=== PATIENT | female | born 1945 | race Caucasian/White ===

== ENCOUNTER 2016-08-13 15:21 | Inpatient (IN) | payer OTHER ==
[~2016-08-13] VITALS: Ht 149.9 cm; Wt 61.0 kg
[~2016-08-13 15:21] MED LIST: CALC1TAB4 PO; CIPR500T87 PO; L.AC1CAP6 PO; MECL25TA4 PO; METO10TA82 PO; MULT1TAB60 PO; Mega Red PO; ONDA4TAB10 PO
[2016-08-13] MEDS ORDERED: SODIUM CHLORIDE 0.9% 1,000 ML IV ONE ×2 (15:38→19:00)
[2016-08-13] MEDS ORDERED: LORazepam 2 MG/ML, 1ML ONE (15:44)
[2016-08-13] MEDS ORDERED: SODIUM CHLORIDE 0.9% 1,000ML IVBOLUS ONE (16:00)
[2016-08-13] MEDS ORDERED: SODIUM CHLORIDE FLUSH 10ML SYR IVF ONE (16:00)
[2016-08-13] MEDS ORDERED: LORazepam 2 MG/ML, 1ML IVPush ONE (16:00)
[2016-08-13 16:08] LABS: BLOOD UREA NITROGEN 9 mg/dL (7-18)
[2016-08-13 18:04] LABS: IS PT STATUS REG ER OR PRE ER? YES
[2016-08-13] MEDS ORDERED: SODIUM CHLORIDE FLUSH 10ML SYR IVF PRN (19:00)
[2016-08-13 20:57] VITALS: BP 135/89
[2016-08-14] MEDS: ACETAMINOPHEN 325 MG TABLET PO PRN ×3 (00:51→11:29)
[2016-08-14] MEDS ORDERED: MORPHINE SULFATE 4 MG/ML, 1ML IV PRN (01:00)
[2016-08-14] MEDS ORDERED: ONDANSETRON 2MG/ML, 2ML IV PRN (01:00)
[2016-08-14 03:27] VITALS: BP 110/73
[2016-08-14] MEDS: NS + 20MEQ KCL 1,000 ML IV SCH ×2 (03:46→12:30)
[2016-08-14 05:58] LABS: ASPARTATE AMINO TRANSFERASE 14 U/L (15-37); BLOOD UREA NITROGEN 6 mg/dL (7-18)
[2016-08-14 07:10] VITALS: BP 115/77
[2016-08-14 14:43] VITALS: BP 124/80
== END 2016-08-14 19:02 | disposition home or self-care (01) | DRG 880 ==
LOC: ED 16:25 → EDIP 19:00 → 3NE 20:27
PROVIDERS: ADMIT Internal Medicine; ATTEND Internal Medicine
DX: F41.9 Anxiety disorder, unspecified (principal); F23 Brief psychotic disorder; R44.3 Hallucinations, unspecified; R07.89 Other chest pain; R51 Headache; I10 Essential (primary) hypertension; M54.5 Low back pain; G89.29 Other chronic pain; B37.3 Candidiasis of vulva and vagina; F22 Delusional disorders; Z86.000 Personal history of in-situ neoplasm of breast; Z86.010 Personal history of colon polyps; Z87.442 Personal history of urinary calculi; Z88.8 Allergy status to other drugs, medicaments and biological substances; Z88.1 Allergy status to other antibiotic agents; Z88.5 Allergy status to narcotic agent; Z90.89 Acquired absence of other organs; N20.0 Calculus of kidney; F41.0 Panic disorder [episodic paroxysmal anxiety]; T42.4X5A Adverse effect of benzodiazepines, initial encounter
CPT/HCPCS: 36415; 70450; 74176; 76856; 80048; 80053; 81003; 82040; 84443; 84484; 85025; 87086; 93005; 96361; 96374; J3480; J2060; J7030

== ENCOUNTER → 2017-03-29 | Outpatient (CLI) | payer OTHER | END | disposition home or self-care (01) | LOC: CFH 10:37 | PROVIDERS: ATTEND Surgery | DX: Z12.31 Encounter for screening mammogram for malignant neoplasm of breast (principal); N85.8 Other specified noninflammatory disorders of uterus | CPT/HCPCS: 76830; G0202 ==

== ENCOUNTER → 2017-04-08 | Outpatient (CLI) | payer OTHER | END | disposition home or self-care (01) | LOC: CFH 08:56 | PROVIDERS: ATTEND Obstetrics & Gynecology | DX: N20.0 Calculus of kidney (principal); K57.30 Diverticulosis of large intestine without perforation or abscess without bleeding; N85.8 Other specified noninflammatory disorders of uterus; M47.816 Spondylosis without myelopathy or radiculopathy, lumbar region; M41.86 Other forms of scoliosis, lumbar region; M51.36 Other intervertebral disc degeneration, lumbar region | CPT/HCPCS: 72192 ==

== ENCOUNTER → 2017-05-19 | Outpatient (CLI) | payer OTHER ==
[2017-05-19 13:12] LABS: BASOPHILS # (AUTO) 0.03 x10^3/uL (0-0.1); BASOPHILS % (AUTO) 0 % (0-1); EOSINOPHILS % (AUTO) 1 % (1-7); LYMPHOCYTES # (AUTO) 3.34 x10^3/uL (1-3.4); LYMPHOCYTES % (AUTO) 36 % (22-44); MD NO; MEAN CORPUSCULAR HGB CONC 32.9 g/dL (32.4-35.8); MEAN PLATELET VOLUME 8.1 fL (7.4-10.4); MONOCYTES # (AUTO) 0.66 x10^3/uL (0.2-0.8); MONOCYTES % (AUTO) 7 % (2-9); NEUTROPHILS # (AUTO) 5.22 x10^3/uL (1.8-6.8); NEUTROPHILS % (AUTO) 56 % (42-75); PLATELET COUNT 258 x10^3/uL (130-400); RED BLOOD COUNT 5.47 x10^6/uL (3.82-5.3); RED CELL DISTRIBUTION WIDTH 13.7 % (9.6-15.2)
== END | disposition home or self-care (01) ==
LOC: STAR 12:01
PROVIDERS: ATTEND Obstetrics & Gynecology
DX: Z01.818 Encounter for other preprocedural examination (principal); N85.8 Other specified noninflammatory disorders of uterus
CPT/HCPCS: 36415; 85025; 93005

== ENCOUNTER 2017-05-29 05:39 | Day surgery (SDC) | payer OTHER ==
[~2017-05-29] VITALS: Ht 149.9 cm; Wt 57.3 kg
[2017-05-29 06:00] VITALS: BP 143/87
[2017-05-29] MEDS ORDERED: BUPIVACAINE/PF 0.25% ONE (07:02)
[2017-05-29] MEDS ORDERED: SILVER NITRATE STICK TP ONE (07:02)
[2017-05-29] MEDS ORDERED: EPINEPHRINE 1 MG/ML, 1ML ONE (07:02)
[2017-05-29] MEDS ORDERED: FENTANYL PF 250 MCG/5ML ONE (07:08)
[2017-05-29] MEDS ORDERED: MIDAZOLAM 1 MG/ML, 2ML ONE (07:08)
[2017-05-29] MEDS ORDERED: ROCURONIUM 10MG/ML,5ML ONE (07:42)
[2017-05-29] MEDS ORDERED: PROPOFOL 10 MG/ML, 20ML ONE (07:42)
[2017-05-29] MEDS ORDERED: SUCCINYLCHOLINE 20 MG/ML, 10ML ONE (07:42)
[2017-05-29] MEDS ORDERED: DEXAMETHASONE 4 MG/ML, 1ML ONE (07:42)
[2017-05-29] MEDS ORDERED: HYDROmorphone 1 MG/ML, 1ML IV PRN (08:00)
[2017-05-29] MEDS ORDERED: LABETALOL 5MG/ML, 20ML IV PRN (08:00)
[2017-05-29] MEDS ORDERED: hydrALAzine 20 MG/ML, 1ML IV PRN (08:00)
[2017-05-29] MEDS ORDERED: ONDANSETRON 2MG/ML, 2ML IVPush PRN (08:00)
[2017-05-29] MEDS ORDERED: FENTANYL PF 100 MCG/2ML IV PRN (08:00)
[2017-05-29] MEDS ORDERED: OXYcodone 5 MG/5 ML ORAL.SOL UDC PO PRN (08:00)
[2017-05-29] MEDS ORDERED: METOCLOPRAMIDE 5 MG/ML, 2ML IV PRN (08:00)
[2017-05-29] MEDS ORDERED: ACETAMINOPHEN 325 MG TABLET PO PRN ×2 (08:00→16:30)
[2017-05-29] MEDS ORDERED: ACETAMINOPHEN 650 MG/20.3 ML UDC ONE (09:00)
[2017-05-29] MEDS ORDERED: morphine SULFATE 10 MG/ML, 1ML IV PRN (11:00)
[2017-05-29] MEDS ORDERED: OXYcodone/APAP 5/325MG TABLET PO PRN (11:00)
[2017-05-29] MEDS ORDERED: ONDANSETRON 2MG/ML, 2ML IV PRN (11:00)
[2017-05-29] MEDS ORDERED: LACTATED RINGERS 1,000 ML IV SCH (11:00)
[2017-05-29] MEDS: IBUPROFEN 600 MG TABLET PO SCH ×2 (11:00→15:35)
== END 2017-05-29 17:10 | disposition home or self-care (01) ==
LOC: OR 05:39 → 4NOR 05:45 → OUT 17:10
PROVIDERS: ATTEND Obstetrics & Gynecology
DX: N84.0 Polyp of corpus uteri (principal); I10 Essential (primary) hypertension; Z85.3 Personal history of malignant neoplasm of breast; Z87.442 Personal history of urinary calculi; Z98.890 Other specified postprocedural states; Z98.51 Tubal ligation status; Z88.6 Allergy status to analgesic agent
CPT/HCPCS: 58558; 88305; J0171; J0330; J1100; J2250; J2405; J2704; J3010; J3490

== ENCOUNTER → 2018-03-30 | Outpatient (CLI) | payer OTHER | END | disposition home or self-care (01) | LOC: CFH 08:22 | PROVIDERS: ATTEND Surgery | DX: Z12.31 Encounter for screening mammogram for malignant neoplasm of breast (principal); Z85.3 Personal history of malignant neoplasm of breast | CPT/HCPCS: 77067 ==

== ENCOUNTER → 2018-05-09 | Outpatient (CLI) | payer MEDICARE | END | disposition home or self-care (01) | LOC: CFH 10:20 | PROVIDERS: ATTEND Surgery | DX: N61.0 Mastitis without abscess (principal); N64.4 Mastodynia | CPT/HCPCS: 76642; 77066; G0279 ==

== ENCOUNTER → 2018-06-24 | Outpatient (CLI) | payer MEDICARE | END | disposition home or self-care (01) | LOC: CFH 08:05 | PROVIDERS: ATTEND Urology | DX: N20.0 Calculus of kidney (principal) | CPT/HCPCS: 76770 ==

== ENCOUNTER → 2018-06-27 | Outpatient (CLI) | payer MEDICARE | END | disposition home or self-care (01) | LOC: CFH 11:05 | PROVIDERS: ATTEND Urology | DX: N20.0 Calculus of kidney (principal) | CPT/HCPCS: 74018 ==

== ENCOUNTER 2018-06-30 10:43 | Emergency (ER) | payer MEDICARE ==
[~2018-06-30] VITALS: Ht 149.9 cm; Wt 60.2 kg
--- NOTE | 2018-06-30 11:49 | NUR ---
PT AMBULATORY TO ROOM 16 W/ C/O FEVERS, CHILLS, R FLANK PAIN RADIATING TO ABDOMEN. PT NOTED TO HAVE SEMI-FIRM DISTENDED ABD. PT STATES ABD DISTENDED OVERNIGHT. STATES SHE HAD SMALL BM'S RECENTLY AND STATES SHE HAD NORMAL BM THIS AM. PT DENIES ANY URINE ISSUES. PT HAS HX KIDNEY STONES TO R SIDE. PT RESTING ON GURNEY. MONITORS APPLIED. PIV INITIATED. WARM BLANKET PROVIDED. ERP DR. MASON AT BEDSIDE.
[2018-06-30] MEDS ORDERED: ONDANSETRON 2MG/ML, 2ML IVPush ONE (12:00)
[2018-06-30] MEDS ORDERED: SODIUM CHLORIDE 0.9% 1,000ML IVBOLUS ONE (12:00)
[2018-06-30] MEDS ORDERED: SODIUM CHLORIDE FLUSH 10ML SYR IVF ONE (12:00)
[2018-06-30] MEDS ORDERED: SODIUM CHLORIDE 0.9% 1,000 ML IV ONE (12:00)
[2018-06-30] MEDS ORDERED: ONDANSETRON 2MG/ML, 2ML ONE (12:18)
[2018-06-30] MEDS ORDERED: MORPHINE SULFATE 4 MG/ML, 1ML ONE ×2 (12:18→13:58)
[2018-06-30] MEDS: MORPHINE SULFATE 4 MG/ML, 1ML IVPush PRN ×2 (12:24→14:02)
[2018-06-30 12:30] LABS: BASOPHILS # (AUTO) 0.02 x10^3/uL (0-0.1); BASOPHILS % (AUTO) 0 % (0-1); EOSINOPHILS # (AUTO) 0.05 x10^3/uL (0-0.4); EOSINOPHILS % (AUTO) 1 % (1-7); LYMPHOCYTES # (AUTO) 2.99 x10^3/uL (1-3.4); LYMPHOCYTES % (AUTO) 36 % (22-44); MD NO; MEAN CORPUSCULAR HEMOGLOBIN 29.8 pg (27.0-34.8); MEAN CORPUSCULAR HGB CONC 33.2 g/dL (32.4-35.8); MEAN CORPUSCULAR VOLUME 89.7 fL (80-100); MEAN PLATELET VOLUME 8.6 fL (7.4-10.4); MONOCYTES # (AUTO) 0.55 x10^3/uL (0.2-0.8); MONOCYTES % (AUTO) 7 % (2-9); NEUTROPHILS # (AUTO) 4.71 x10^3/uL (1.8-6.8); NEUTROPHILS % (AUTO) 57 % (42-75); PLATELET COUNT 244 x10^3/uL (130-400); RED BLOOD COUNT 5.92 x10^6/uL (3.82-5.3)
[2018-06-30 12:46] LABS: ALANINE AMINOTRANSFERASE 26 U/L (12-78); ANION GAP 9 mmol/L (5-15); CALCIUM 9.8 mg/dL (8.5-10.1); CHLORIDE 104 mmol/L (98-107); CREATININE 0.82 mg/dL (0.55-1.02)
[2018-06-30 12:48] LABS: ALKALINE PHOSPHATASE 66 U/L (45-117); BILIRUBIN,TOTAL 1.2 mg/dL (0.2-1.0); TOTAL PROTEIN 8.4 g/dL (6.4-8.2)
--- NOTE | 2018-06-30 13:23 | NUR ---
TASK RN, COVERING MEAL BREAK. URINE COLLECTED/SENT TO LAB. VSS/UPDATED IN COMPUTER.
[2018-06-30 13:36] LABS: MICROSCOPIC NOT IND
[2018-06-30 13:46] LABS: CULTURE INDICATED? NO
--- NOTE | 2018-06-30 13:56 | NUR ---
PT CHART REVIEWED AND PLACED FOR RECHECK.
[2018-06-30 14:40] VITALS: BP 130/70
--- NOTE | 2018-06-30 14:40 | NUR ---
PT RESTING ON MADELAINE. VSS.
[2018-06-30] MEDS ORDERED: ONDANSETRON ODT 4 MG PO ONE (15:00)
[2018-06-30] MEDS ORDERED: ONDANSETRON ODT 4 MG ONE (15:01)
== END 2018-06-30 15:47 | disposition home or self-care (01) ==
LOC: ED 15:40
DX: R10.84 Generalized abdominal pain (principal); G89.29 Other chronic pain; Z85.3 Personal history of malignant neoplasm of breast
CPT/HCPCS: 36415; 71045; 74176; 80053; 81003; 83605; 83690; 85025; 93005; 96374; 96375; 96376; 99284; J2405; J7030; Q0162

== ENCOUNTER → 2018-07-13 | Outpatient (CLI) | payer MEDICARE | END | disposition home or self-care (01) | LOC: CFH 14:13 | PROVIDERS: ATTEND Internal Medicine | DX: R10.9 Unspecified abdominal pain (principal); M41.86 Other forms of scoliosis, lumbar region; M47.816 Spondylosis without myelopathy or radiculopathy, lumbar region | CPT/HCPCS: 74022 ==

== ENCOUNTER → 2018-09-16 | Outpatient (CLI) | payer MEDICARE | END | disposition home or self-care (01) | LOC: CFH 12:05 | PROVIDERS: ATTEND Internal Medicine | DX: M85.88 Other specified disorders of bone density and structure, other site (principal); M25.721 Osteophyte, right elbow; M79.89 Other specified soft tissue disorders ==

== ENCOUNTER 2018-11-24 10:15 | Inpatient (IN) | payer MEDICARE ==
[~2018-11-24] VITALS: Ht 149.9 cm; Wt 64.8 kg
== END 2018-12-06 18:20 | DRG 551 ==
LOC: ED 15:09 → EDIP 15:30 → 3NE 17:59
PROVIDERS: ADMIT Internal Medicine; ATTEND Internal Medicine
DX: M54.2 Cervicalgia (principal); R53.2 Functional quadriplegia; G95.9 Disease of spinal cord, unspecified; M54.12 Radiculopathy, cervical region; Z88.8 Allergy status to other drugs, medicaments and biological substances; Z88.6 Allergy status to analgesic agent; Z91.041 Radiographic dye allergy status; G89.29 Other chronic pain; K59.00 Constipation, unspecified; M25.78 Osteophyte, vertebrae; M48.02 Spinal stenosis, cervical region; S16.1XXA Strain of muscle, fascia and tendon at neck level, initial encounter; Z83.3 Family history of diabetes mellitus; Z85.3 Personal history of malignant neoplasm of breast; Z87.442 Personal history of urinary calculi; Z98.51 Tubal ligation status; W01.0XXA Fall on same level from slipping, tripping and stumbling without subsequent striking against object, initial encounter; Y93.89 Activity, other specified; Y92.89 Other specified places as the place of occurrence of the external cause; Y99.8 Other external cause status; R20.2 Paresthesia of skin
CPT/HCPCS: 36415; 70450; 72072; 72125; 72141; 72146; 72148; 74018; 80053; 82565; 83735; 84100; 85025; 93005; 96374; 99285; G0378; J1650; J2405; Q0162; J1200; J2270; J7030

== ENCOUNTER 2019-05-10 09:18 | Outpatient (CLI) | payer MEDICARE, OTHER ==
[~2019-05-10 09:18] MED LIST changes: +ACET325T26 PO; +BISA10SU14 PR; +DOCU-131 PO; +ONDA4TAB13 PO; +POLY17PO5 PO; +TRAM50TA2 PO
== END 2019-05-10 23:59 | disposition home or self-care (01) ==
LOC: CFH 09:18
PROVIDERS: ATTEND Surgery
DX: Z12.31 Encounter for screening mammogram for malignant neoplasm of breast (principal); N64.89 Other specified disorders of breast
CPT/HCPCS: 77067

== ENCOUNTER → 2019-08-29 | Outpatient (CLI) | payer MEDICARE ==
[~2019-08-29] MED LIST changes: +MECL-101 PO; -MECL25TA4 PO
== END | disposition home or self-care (01) ==
LOC: RAD 09:30
PROVIDERS: ATTEND Registered Nurse Registered Nurse First Assistant
DX: M47.812 Spondylosis without myelopathy or radiculopathy, cervical region (principal); M51.36 Other intervertebral disc degeneration, lumbar region; M48.02 Spinal stenosis, cervical region; M41.86 Other forms of scoliosis, lumbar region; M47.817 Spondylosis without myelopathy or radiculopathy, lumbosacral region; M48.07 Spinal stenosis, lumbosacral region
CPT/HCPCS: 72050; 72110; 72141; 72148

== ENCOUNTER 2019-10-04 16:56 | Inpatient (IN) | payer MEDICARE ==
[~2019-10-04] VITALS: Ht 149.9 cm; Wt 75.0 kg
[~2019-10-04 16:56] MED LIST changes: +MULT-449 PO; -MULT1TAB60 PO
--- NOTE | 2019-10-04 17:26 | NUR ---
BIB [facility]. MGLF. C/O left ankle pain and deformity. 2+ dorsalis pedis pulse. Also, C/O stinging pain from right lower back down RLE and from neck down BUE (worse on left). Patient sees Dr. Beck for her chronic neck and lower back pain. Patient was in bigeminy with [facility]. Converted with 500mL NS. EKG done. Sinus tach in 110s in ED. Patient tearful and anxious. at beside. Placed on NIBP, pulse ox and cardiac rehabilitation specialist. Ice to left ankle. Provided with blanket. Will continue to monitor.
--- NOTE | 2019-10-04 17:29 | NUR ---
Patient given 4mg zofran, 3mg moprhine, and 1 mg Versed by [facility].
[2019-10-04] MEDS ORDERED: HYDROmorphone 1 MG/ML, 1ML INJ ONE (17:59)
[2019-10-04] MEDS ORDERED: HYDROmorphone 1 MG/ML, 1ML INJ IVPush ONE (18:00)
[2019-10-04] MEDS ORDERED: SODIUM CHLORIDE FLUSH 10ML SYR IVF ONE (18:00)
[2019-10-04] MEDS ORDERED: MORPHINE SULFATE 4 MG/ML, 1ML ONE ×2 (18:10→20:45)
--- NOTE | 2019-10-04 18:15 | NUR ---
TASK RN: PT MED NOTED FOR NECK PAIN. CALL LIGHT W/I REACH. PRIMARY RN INFORMED.
[2019-10-04] MEDS ORDERED: morphine SULFATE 10 MG/ML, 1ML IVPush ONE (18:30)
--- NOTE | 2019-10-04 19:30 | NUR ---
Patient to xray
[2019-10-04] MEDS ORDERED: MORPHINE SULFATE 4 MG/ML, 1ML IVPush ONE (20:30)
[2019-10-04] MEDS ORDERED: ONDANSETRON 2MG/ML, 2ML ONE (20:44)
--- NOTE | 2019-10-04 20:51 | NUR ---
Patient medicated for splinting. No other needs.
[2019-10-04] MEDS ORDERED: MECL-101 PO (20:57)
--- NOTE | 2019-10-04 21:00 | NUR ---
Report to ALVIN Goodwin.
--- NOTE | 2019-10-04 21:12 | NUR ---
REPORT FROM ALVIN HOGAN.
[2019-10-04 21:20] LABS: BASOPHILS # (AUTO) 0.05 x10^3/uL (0-0.1); BASOPHILS % (AUTO) 0 % (0-1); EOSINOPHILS # (AUTO) 0.09 x10^3/uL (0-0.4); EOSINOPHILS % (AUTO) 1 % (1-7); LYMPHOCYTES # (AUTO) 4.01 x10^3/uL (1-3.4); LYMPHOCYTES % (AUTO) 31 % (22-44); MD NO; MEAN CORPUSCULAR HEMOGLOBIN 30.3 pg (27.0-34.8); MEAN CORPUSCULAR HGB CONC 33.5 g/dL (32.4-35.8); MEAN CORPUSCULAR VOLUME 90.4 fL (80-100); MEAN PLATELET VOLUME 9.2 fL (7.4-10.4); MONOCYTES # (AUTO) 0.77 x10^3/uL (0.2-0.8); MONOCYTES % (AUTO) 6 % (2-9); NEUTROPHILS # (AUTO) 8.04 x10^3/uL (1.8-6.8); NEUTROPHILS % (AUTO) 62 % (42-75); PLATELET COUNT 218 x10^3/uL (130-400); RED BLOOD COUNT 5.37 x10^6/uL (3.82-5.3); RED CELL DISTRIBUTION WIDTH 14.2 % (9.6-15.2)
[2019-10-04 21:29] LABS: INTERNATIONAL NORMALIZED RATIO 0.94 (0.93-1.1)
[2019-10-04] MEDS ORDERED: ONDANSETRON 2MG/ML, 2ML IVPush ONE (21:30)
[2019-10-04 21:31] LABS: ALBUMIN 3.6 g/dL (3.4-5.0); ANION GAP 7 mmol/L (5-15); CALCIUM 8.7 mg/dL (8.5-10.1); CHLORIDE 110 mmol/L (98-107); CREATININE 0.86 mg/dL (0.55-1.02)
[2019-10-04] MEDS ORDERED: POTASSIUM CHLORIDE 20 MEQ TAB.ER.PRT PO ONE (22:30)
[2019-10-04] MEDS: SODIUM CHLORIDE FLUSH 10ML SYR IVF SCH (22:30)
[2019-10-04] MEDS ORDERED: BISACODYL 10 MG SUPP PR PRN (22:30)
[2019-10-04] MEDS ORDERED: MECLIZINE 25 MG TABLET PO PRN (22:30)
[2019-10-04] MEDS ORDERED: MORPHINE SULFATE 4 MG/ML, 1ML IVPush PRN (22:30)
--- NOTE | 2019-10-04 23:31 | NUR ---
PT RESTING IN BED, AT BEDSIDE. PUREWICK CONNECTED AND RUNNING PROPERLY. PT PT AND UPDATED ON PLAN OF CARE AND BASIC TIMEFRAME. PT AWARE OF NPO STATUS. DENY ANY FURTHER NEEDS OR CONCERNS AT THIS TIME. CALL LIGHT IN REACH.
--- NOTE | 2019-10-04 23:49 | NUR ---
PT IN BED, AT BEDSIDE. PT AND UPDATED WITH SURGEON'S NAME AND SCHEDULED TIME OF PROCEDURE. PT ABLE TO LEGALLY CONSENT ON HER OWN TO SURGERY. MED REC COMPLETE, PT ONLY TAKES MECLIZINE AT THIS TIME. MARK - PT - HOME [phone] CELL [phone]
--- NOTE | 2019-10-04 23:51 | NUR ---
REPORT CALLED TO RECEIVING RN. PT AWAITING TRANSPORT AT THIS TIME. CALL LIGHT IN REACH.
[2019-10-05 00:15] VITALS: BP 137/73
[2019-10-05] MEDS: HEPARIN 5,000 UNITS/ML, 1ML SQ SCH ×4 (01:47→22:30)
[2019-10-05] MEDS ORDERED: POTASSIUM CHLORIDE 30 MEQ in SODIUM CHLORIDE 0.9% 500 ML IV ONE (02:00)
[2019-10-05] MEDS ORDERED: MORPHINE SULFATE 4 MG/ML, 1ML IVPush PRN (02:00)
[2019-10-05] MEDS ORDERED: ACETAMINOPHEN 325 MG TABLET PO ONE (02:00)
[2019-10-05] MEDS: ONDANSETRON 2MG/ML, 2ML IVPush PRN ×2 (02:27→08:15)
[2019-10-05] MEDS ORDERED: DIPHENHYDRAMINE 50 MG/ML, 1ML IVPush ONE (02:30)
[2019-10-05 02:36] VITALS: BP 115/65
[2019-10-05 04:56] LABS: BASOPHILS # (AUTO) 0.02 x10^3/uL (0-0.1); BASOPHILS % (AUTO) 0 % (0-1); EOSINOPHILS # (AUTO) 0.07 x10^3/uL (0-0.4); EOSINOPHILS % (AUTO) 1 % (1-7); LYMPHOCYTES # (AUTO) 1.61 x10^3/uL (1-3.4); LYMPHOCYTES % (AUTO) 15 % (22-44); MD NO; MEAN CORPUSCULAR HEMOGLOBIN 30.2 pg (27.0-34.8); MEAN CORPUSCULAR HGB CONC 33.1 g/dL (32.4-35.8); MEAN CORPUSCULAR VOLUME 91.3 fL (80-100); MEAN PLATELET VOLUME 9.4 fL (7.4-10.4); MONOCYTES # (AUTO) 0.66 x10^3/uL (0.2-0.8); MONOCYTES % (AUTO) 6 % (2-9); NEUTROPHILS # (AUTO) 8.14 x10^3/uL (1.8-6.8); NEUTROPHILS % (AUTO) 78 % (42-75); PLATELET COUNT 197 x10^3/uL (130-400); RED BLOOD COUNT 5.01 x10^6/uL (3.82-5.3); RED CELL DISTRIBUTION WIDTH 14.4 % (9.6-15.2)
[2019-10-05 05:13] LABS: ANION GAP 6 mmol/L (5-15); CALCIUM 8.1 mg/dL (8.5-10.1); CHLORIDE 112 mmol/L (98-107); CREATININE 0.81 mg/dL (0.55-1.02)
[2019-10-05 06:37] VITALS: BP 109/72
[2019-10-05] MEDS: SODIUM CHLORIDE FLUSH 10ML SYR IVF SCH ×3 (09:00→21:15)
[2019-10-05] MEDS ORDERED: BUPIVACAINE/EPI 0.5% 1:200K ONE (10:54)
[2019-10-05] MEDS ORDERED: BUPIVACAINE/PF 0.5% ONE (11:37)
[2019-10-05] MEDS ORDERED: MIDAZOLAM 1 MG/ML, 2ML ONE (11:41)
[2019-10-05] MEDS ORDERED: SUCCINYLCHOLINE 20 MG/ML, 10ML ONE ×2 (11:42→11:45)
[2019-10-05] MEDS ORDERED: FENTANYL PF 250 MCG/5ML ONE (11:42)
[2019-10-05] MEDS ORDERED: PROPOFOL 10 MG/ML, 20ML ONE (11:44)
[2019-10-05] MEDS ORDERED: ONDANSETRON 2MG/ML, 2ML ONE ×2 (11:45→13:44)
[2019-10-05] MEDS ORDERED: DEXAMETHASONE 4 MG/ML, 1ML ONE (11:45)
[2019-10-05] MEDS ORDERED: CEFAZOLIN 1,000 MG ONE (11:45)
[2019-10-05] MEDS ORDERED: ROCURONIUM 10 MG/ML,10ML ONE (11:45)
[2019-10-05] MEDS ORDERED: FENTANYL PF 100 MCG/2ML ONE (12:49)
[2019-10-05] MEDS: FENTANYL PF 100 MCG/2ML IV PRN ×2 (12:55→13:10)
[2019-10-05] MEDS ORDERED: ACETAMINOPHEN 325 MG TABLET PO PRN (13:00)
[2019-10-05] MEDS ORDERED: EPHEDRINE 50 MG/ML, 1ML IVPush PRN (13:00)
[2019-10-05] MEDS ORDERED: DIPHENHYDRAMINE 50 MG/ML, 1ML IVPush PRN (13:00)
[2019-10-05] MEDS ORDERED: LABETALOL 5MG/ML, 20ML IV PRN (13:00)
[2019-10-05] MEDS ORDERED: MIDAZOLAM 1 MG/ML, 2ML IV PRN (13:00)
[2019-10-05] MEDS ORDERED: ALBUTEROL SULFATE 2.5 MG/3 ML NPPB PRN (13:00)
[2019-10-05] MEDS ORDERED: MEPERIDINE/PF 25MG/0.5ML IVPush PRN (13:00)
[2019-10-05] MEDS ORDERED: ONDANSETRON 2MG/ML, 2ML IVPush PRN (13:00)
[2019-10-05] MEDS ORDERED: hydrALAzine 20 MG/ML, 1ML IV PRN (13:00)
[2019-10-05] MEDS ORDERED: DIAZEPAM 5 MG/ML, 2ML IVPush PRN (13:00)
[2019-10-05] MEDS ORDERED: PROMETHAZINE 12.5 MG SUPP PR PRN (13:00)
[2019-10-05] MEDS ORDERED: PROMETHAZINE 25 MG/ML, 1ML IVPush PRN (13:00)
[2019-10-05] MEDS ORDERED: MORPHINE SULFATE 4 MG/ML, 1ML ONE (13:13)
[2019-10-05] MEDS: morphine SULFATE 10 MG/ML, 1ML IVPush PRN ×2 (13:20→13:35)
[2019-10-05] MEDS ORDERED: DIAZEPAM 5 MG/ML, 2ML ONE (13:51)
[2019-10-05] MEDS ORDERED: KETOROLAC 30 MG/1 ML ONE (13:52)
[2019-10-05] MEDS ORDERED: DIPHENHYDRAMINE 50 MG/ML, 1ML ONE (14:16)
[2019-10-05 14:59] VITALS: BP 146/90
[2019-10-05] MEDS ORDERED: ONDANSETRON 2MG/ML, 2ML IV PRN (15:30)
[2019-10-05 18:07] VITALS: BP 132/67
[2019-10-05 18:59] VITALS: BP 108/67
[2019-10-05] MEDS: CEFAZOLIN PMX 1GM/50ML 50 ML IVPB SCH (21:15)
[2019-10-05] MEDS: DIPHENHYDRAMINE 25 MG CAPSULE PO PRN (21:15)
[2019-10-06 00:24] VITALS: BP 90/53
[2019-10-06] MEDS: CEFAZOLIN PMX 1GM/50ML 50 ML IVPB SCH (05:36)
[2019-10-06 07:07] VITALS: BP 107/70
[2019-10-06] MEDS: DIPHENHYDRAMINE 25 MG CAPSULE PO PRN ×2 (08:15→15:00)
[2019-10-06] MEDS: HEPARIN 5,000 UNITS/ML, 1ML SQ SCH ×2 (08:16→15:00)
[2019-10-06] MEDS: SODIUM CHLORIDE FLUSH 10ML SYR IVF SCH ×4 (08:16→20:27)
[2019-10-06 12:53] VITALS: BP 152/77
[2019-10-06] MEDS: METOPROLOL TARTRATE 25 MG TAB PO SCH (17:33)
[2019-10-06 18:56] VITALS: BP 105/67
[2019-10-07] MEDS: DIPHENHYDRAMINE 25 MG CAPSULE PO PRN ×4 (00:14→21:42)
[2019-10-07] MEDS: HEPARIN 5,000 UNITS/ML, 1ML SQ SCH ×4 (00:14→23:07)
[2019-10-07 01:09] VITALS: BP 99/66
[2019-10-07] MEDS: METOPROLOL TARTRATE 25 MG TAB PO SCH ×2 (05:23→17:07)
[2019-10-07 06:51] VITALS: BP 111/64
[2019-10-07] MEDS: SODIUM CHLORIDE FLUSH 10ML SYR IVF SCH ×4 (08:48→21:45)
[2019-10-07 12:55] VITALS: BP 111/76
[2019-10-07 20:59] VITALS: BP 91/54
[2019-10-08 01:15] VITALS: BP 87/50
[2019-10-08] MEDS: DIPHENHYDRAMINE 25 MG CAPSULE PO PRN ×4 (04:45→21:48)
[2019-10-08 04:46] VITALS: BP 99/60
[2019-10-08] MEDS: METOPROLOL TARTRATE 25 MG TAB PO SCH (04:47)
[2019-10-08] MEDS: SODIUM CHLORIDE FLUSH 10ML SYR IVF SCH ×2 (08:18→20:59)
[2019-10-08] MEDS: HEPARIN 5,000 UNITS/ML, 1ML SQ SCH ×3 (08:18→23:53)
[2019-10-08 09:14] VITALS: BP 97/60
[2019-10-08 10:55] VITALS: BP 116/50
[2019-10-08 13:19] VITALS: BP 99/62
[2019-10-08 17:02] LABS: MICROSCOPIC NOT IND
[2019-10-08 18:18] VITALS: BP 123/76
[2019-10-08] MEDS ORDERED: METOPROLOL SUCCINATE 25 MG TAB.ER.24H PO SCH (21:00)
[2019-10-09 01:19] VITALS: BP 93/60
[2019-10-09] MEDS: DIPHENHYDRAMINE 25 MG CAPSULE PO PRN ×2 (05:22→12:05)
[2019-10-09 07:00] VITALS: BP 103/65
[2019-10-09] MEDS: HEPARIN 5,000 UNITS/ML, 1ML SQ SCH (08:31)
[2019-10-09] MEDS: SODIUM CHLORIDE FLUSH 10ML SYR IVF SCH (09:00)
[2019-10-09 13:01] VITALS: BP 115/73
[2019-10-09] MEDS ORDERED: ALPR0.254 PO (13:15)
[2019-10-09] MEDS ORDERED: TRAM50TA2 PO (13:15)
[2019-10-09] MEDS ORDERED: HEPA50002 SQ (13:15)
[2019-10-09] MEDS ORDERED: DIPH25CA26 PO (13:15)
[2019-10-09] MEDS ORDERED: BISA10SU4 PR (13:15)
[2019-10-09] MEDS ORDERED: ONDA4TAB13 PO (13:15)
[2019-10-09] MEDS ORDERED: MECL-101 PO (13:15)
[2019-10-09] MEDS ORDERED: ONDANSETRON ODT 4 MG PO PRN (13:30)
== END 2019-10-09 17:05 | DRG 493 ==
LOC: ED 19:20 → EDIP 22:13 → 4NE 23:58 → 4WST 10-05 17:59 → 4NE 10-08 10:46
PROVIDERS: ADMIT Internal Medicine; ATTEND Internal Medicine
PROC: 0QSK04Z Reposition Left Fibula with Internal Fixation Device, Open Approach (ICD-10-PCS; 2019-10-05)
PROC: 0QSH04Z Reposition Left Tibia with Internal Fixation Device, Open Approach (ICD-10-PCS; principal; 2019-10-05 12:30)
DX: S82.842A Displaced bimalleolar fracture of left lower leg, initial encounter for closed fracture (principal); R65.10 Systemic inflammatory response syndrome (SIRS) of non-infectious origin without acute organ dysfunction; E87.6 Hypokalemia; M51.36 Other intervertebral disc degeneration, lumbar region; G89.4 Chronic pain syndrome; F41.9 Anxiety disorder, unspecified; F29 Unspecified psychosis not due to a substance or known physiological condition; R00.8 Other abnormalities of heart beat; W01.0XXA Fall on same level from slipping, tripping and stumbling without subsequent striking against object, initial encounter; Z20.828 Contact with and (suspected) exposure to other viral communicable diseases; Z85.3 Personal history of malignant neoplasm of breast; Z83.3 Family history of diabetes mellitus; Z87.442 Personal history of urinary calculi; Y93.89 Activity, other specified; Y92.098 Other place in other non-institutional residence as the place of occurrence of the external cause; Y99.8 Other external cause status; Z90.89 Acquired absence of other organs; Z98.51 Tubal ligation status
CPT/HCPCS: 29515; 36415; 70450; 71045; 72110; 72125; 76000; 80048; 81003; 82040; 85025; 85610; 87635; 93005; 96374; 96375; 96376; C1713; G0378; J0690; J1100; J1644; J2250; J2405; J2704; J3010; J3480; J0330; J1200; J2270; J7040; Q0163

== ENCOUNTER 2019-10-29 21:52 | Emergency (ER) | payer MEDICARE ==
[~2019-10-29] VITALS: Ht 149.9 cm; Wt 60.0 kg
[~2019-10-29 21:52] MED LIST changes: +ALPR0.254 PO; +BISA10SU4 PR; +DIPH25CA26 PO; +HEPA50002 SQ
[2019-10-29] MEDS ORDERED: EPINEPHRINE 1 MG/ML, 1ML IM ONE (22:00)
[2019-10-29] MEDS ORDERED: methylPREDNISolone SOD SUCC 125 MG/2 ML IVPush ONE (22:00)
[2019-10-29] MEDS ORDERED: FAMOTIDINE 20 MG/2 ML IVPush ONE (22:00)
[2019-10-29 22:02] VITALS: BP 141/93
--- NOTE | 2019-10-29 22:51 | NUR ---
Patient BIB [facility] c/o swelling in the back of her throat and diff swallowing after eating shellfish tonight. Patient has a known shellfish allergy. Patient is sticking her tongue out. No swelling noted to throat or face on visualization. Patient is in NAD. Respirations even and unlabored.
[2019-10-29] MEDS ORDERED: ONDANSETRON 2MG/ML, 2ML ONE (23:44)
[2019-10-30] MEDS ORDERED: ONDANSETRON 2MG/ML, 2ML IVPush ONE
--- NOTE | 2019-10-30 01:09 | NUR ---
Report given to Carmen at [facility].
== END 2019-10-30 01:30 ==
LOC: ED 10-30 01:19
DX: T78.1XXA Other adverse food reactions, not elsewhere classified, initial encounter (principal); R07.0 Pain in throat; G89.29 Other chronic pain; Z85.3 Personal history of malignant neoplasm of breast
CPT/HCPCS: 70360; 96372; 96374; 96375; 99284; J0171; J2930; J3490

== ENCOUNTER 2020-02-02 14:11 | Emergency (ER) | payer MEDICARE ==
[~2020-02-02] VITALS: Ht 149.9 cm; Wt 55.0 kg
--- NOTE | 2020-02-02 14:33 | NUR ---
PT CAME IN CO OF NECK PAIN X 2 DAYS. PT DENIES TRAUMA. PT HAS HX OF CHRONIC PAIN. PT HAS HAD A RECENT ANKLE FRACTURE OF RIGHT ANKLE AND HAS BEEN WORKING WITH PT. PT CALLED [phone] TODAY BASIM[facility]ULI[facility]A PT WAS IN A LOT OF PAIN IN HER NECK. PT IS ALSO CONCERNED ABOUT A "NODULE" ON RIGHT SIDE OF HER NECK SHE SAYS APPEARED YESTERDAY. PT IS RESTING IN [facility]. CONNECTED TO MONITORING EQUIPMENT.
--- NOTE | 2020-02-02 15:01 | NUR ---
ANA MATTA AT BEDSIDE.
[2020-02-02] MEDS ORDERED: LORazepam 1MG TABLET ONE (15:21)
[2020-02-02] MEDS ORDERED: LORazepam 1MG TABLET PO ONE (15:30)
--- NOTE | 2020-02-02 15:36 | NUR ---
[employer] SET UP PER PT REQUEST.
--- NOTE | 2020-02-02 16:11 | NUR ---
LAB IN ROOM.
--- NOTE | 2020-02-02 16:35 | NUR ---
PT TO RAD.
[2020-02-02 16:53] LABS: BASOPHILS % (AUTO) 0 % (0-1); EOSINOPHILS % (AUTO) 1 % (1-7); LYMPHOCYTES % (AUTO) 27 % (22-44); MEAN CORPUSCULAR HEMOGLOBIN 30.2 pg (27.0-34.8); MEAN CORPUSCULAR HGB CONC 33.2 g/dL (32.4-35.8); MEAN PLATELET VOLUME 8.9 fL (7.4-10.4); MONOCYTES % (AUTO) 8 % (2-9); NEUTROPHILS % (AUTO) 64 % (42-75); PLATELET COUNT 259 x10^3/uL (130-400); RED BLOOD COUNT 5.46 x10^6/uL (3.82-5.3); RED CELL DISTRIBUTION WIDTH 14.8 % (9.6-15.2)
[2020-02-02 16:54] LABS: MD NO
[2020-02-02 17:03] LABS: ALBUMIN 3.8 g/dL (3.4-5.0); ANION GAP 5 mmol/L (5-15); CALCIUM 9.6 mg/dL (8.5-10.1); CHLORIDE 106 mmol/L (98-107); CREATININE 0.67 mg/dL (0.55-1.02)
[2020-02-02 17:06] VITALS: BP 129/60
--- NOTE | 2020-02-02 17:49 | NUR ---
PT REQUESTING TRANSPORTATION HOME BY [facility] OR [facility]. THROUGHPUT RN UPDATED.
--- NOTE | 2020-02-02 18:05 | NUR ---
[facility] TO [facility] PT AT 1830.
== END 2020-02-02 18:46 | disposition home or self-care (01) ==
LOC: ED 14:28
DX: S16.1XXA Strain of muscle, fascia and tendon at neck level, initial encounter (principal); L04.0 Acute lymphadenitis of face, head and neck; Z98.51 Tubal ligation status; X58.XXXA Exposure to other specified factors, initial encounter; Y93.89 Activity, other specified; Y92.89 Other specified places as the place of occurrence of the external cause; Y99.8 Other external cause status
CPT/HCPCS: 36415; 72050; 80048; 82040; 85025; 99284

== ENCOUNTER → 2020-09-13 | Outpatient (CLI) | payer MEDICARE ==
[~2020-09-13] MED LIST changes: +FENT1PAT74 TD; +GABA300C PO; +LACT20SO13 PO; +MAGN296S4 PO; +MAGN400T50 PO; +MECLIZINE PO; +METH-640 PO; +MILK OF MAGNESIA PO; +PRED20TA PO; +PREG25CA PO; +SENN-211 PO; +VALA500T8 PO; +ZOLP-413 PO
== END | disposition home or self-care (01) ==
LOC: CFH 10:39
PROVIDERS: ATTEND Registered Nurse Registered Nurse First Assistant
DX: M41.86 Other forms of scoliosis, lumbar region (principal); M47.816 Spondylosis without myelopathy or radiculopathy, lumbar region; M48.061 Spinal stenosis, lumbar region without neurogenic claudication; Z98.1 Arthrodesis status
CPT/HCPCS: 72100

== ENCOUNTER 2020-12-20 11:38 | Outpatient (CLI) | payer MEDICARE ==
[2021-01-12] MEDS ORDERED: PHEN-583 PO (09:47)
== END 2020-12-20 23:59 | disposition home or self-care (01) ==
LOC: RAD 11:38
PROVIDERS: ATTEND Neurological Surgery
DX: M41.86 Other forms of scoliosis, lumbar region (principal); M48.061 Spinal stenosis, lumbar region without neurogenic claudication
CPT/HCPCS: 72100